=== PATIENT | male | born 1945 | race Caucasian/White ===

== ENCOUNTER 2022-10-09 16:07 | Emergency (ER) | payer OTHER, BC ==
[2022-10-09 16:37] VITALS: BP 127/75; PULSE 82; RESP 20; TEMP 97.5; BMI 21.2
[2022-10-09] MEDS ORDERED: LIDOCAINE 5% TOPICAL PATCH TP ONE (17:29)
[2022-10-09] MEDS ORDERED: ACETAMINOPHEN 1000 MG/100 ML BAG IVPB ONE (17:29)
[2022-10-09] MEDS ORDERED: LIDOCAINE 5% TOPICAL PATCH ONE (17:38)
[2022-10-09] MEDS ORDERED: ACETAMINOPHEN INJECTION 100 ML IVPB ONE (17:38)
[2022-10-09 18:29] LABS: HEMATOCRIT 40.7 % (35.4-49); HEMOGLOBIN 13.7 G/dL (11.7-16.9); MCH 31.1 pg (25.7-33.7); MCHC 33.6 g/dl (32.0-35.9); MEAN CELL VOLUME 92.5 fl (80-96); MEAN PLT VOLUME 7.5 fl (7.5-11.1); PLATELET COUNT 298.8 10^3/uL (134-434); RDW 14.7 % (11.9-15.9); WHITE BLOOD COUNT 9.8 10^3/uL (4.0-10.8)
[2022-10-09 18:36] LABS: ALBUMIN 4.4 g/dl (3.4-5.0); CALCIUM 9.5 mg/dl (8.5-10); POTASSIUM 4.4 mmol/L (3.5-5.1); TOT PROT 7.2 g/dl (6.4-8.2)
[2022-10-09 19:57] LABS: PLATELET ESTIMATE ADEQUATE
[2022-10-09] MEDS ORDERED: AZITHROMYCIN 500 MG TABLET PO ONE (20:01)
[2022-10-09] MEDS ORDERED: KETOROLAC TROMETHAMINE 30 MG/1 ML VIAL IVPUSH ONE (20:01)
[2022-10-09] MEDS ORDERED: KETOROLAC TROMETHAMINE 30 MG/1 ML VIAL ONE (20:03)
[2022-10-09] MEDS ORDERED: AZITHROMYCIN 500 MG TABLET ONE (20:03)
[2022-10-09] MEDS ORDERED: LIDOCAINE PATCH REMOVAL MC SCH (22:00)
== END 2022-10-09 20:30 | disposition home or self-care (01) ==
LOC: FER 16:07
PROC: 3E033NZ Introduction of Analgesics, Hypnotics, Sedatives into Peripheral Vein, Percutaneous Approach (ICD-10-PCS; principal; 2022-10-09)
PROC: 3E0333Z Introduction of Anti-inflammatory into Peripheral Vein, Percutaneous Approach (ICD-10-PCS; 2022-10-09)
DX: K52.9 Noninfective gastroenteritis and colitis, unspecified (principal); J18.9 Pneumonia, unspecified organism
CPT/HCPCS: 36415; 72128-TC; 72131-TC; 74177-TC; 80053; 81003; 84484; 85027; 87086; 93005; 99285-25